=== PATIENT | male | born 2000 | race Two or more races ===

== ENCOUNTER 2024-11-21 06:26 | Emergency (ER) | payer OTHER ==
[~2024-11-21] VITALS: Ht 162.6 cm; Wt 109.1 kg
[2024-11-21 06:34] VITALS: BP 135/81; PULSE 106; RESP 15; TEMP 98.4; O2SAT 95
== END 2024-11-21 07:12 | disposition home or self-care (01) ==
LOC: ER 06:27
DX: S80.811A Abrasion, right lower leg, initial encounter (principal); X58.XXXA Exposure to other specified factors, initial encounter; Y93.89 Activity, other specified; Y92.89 Other specified places as the place of occurrence of the external cause; Y99.8 Other external cause status
CPT/HCPCS: 99283